=== PATIENT | male | born 1975 | race Hispanic/Latino ===

== ENCOUNTER 2021-02-26 16:49 | Emergency (ER) | payer OTHER ==
[2021-02-26 17:36] LABS: Urine Blood 3+ (Negative); Urine Glucose Negative (Negative); Urine Protein 1+ (Negative); Urine pH 5.5 (5.0-7.0)
[2021-02-26 18:17] LABS: Absolute Lymphocytes (CBC) 0.5 K/uL (0.7-4.9); Basophils % 0.2 % (0-1.3); Hematocrit 48.1 % (39.6-49.0); Lymphocytes % 3.7 % (15.3-44.8); MPV 8.9 fL (7.6-11.3); RBC Red Blood Cell Count 5.58 M/uL (4.33-5.43)
[2021-02-26 18:19] LABS: Urine Bacteria <20 /HPF (NONE SEEN); Urine RBC 20-50 /HPF (NONE SEEN)
[2021-02-26 18:22] LABS: Potassium 4.1 mmol/L (3.5-5.1)
--- NOTE | 2021-02-26 18:42 | RAD REPORT ---
EXAM DESCRIPTION: CT - Stone Protocol - 02/26/2021 6:30 pm CLINICAL HISTORY: Abdominal pain. COMPARISON: None. TECHNIQUE: Computed axial tomography of the abdomen pelvis was obtained without oral or IV contrast. Lack of IV and oral contrast limits evaluation of solid organs, bowel, and vessels. Coronal reformat abhishek images were obtained and reviewed. All CT scans are performed using dose optimization technique as appropriate and may include automated exposure control or mA/KV adjustment according to patient size. FINDINGS: Small right renal calculi. No hydronephrosis. Mild to moderate left hydronephrosis. 6 millimeter calculus proximal to mid left ureter. The liver, spleen, pancreas and adrenals appear grossly normal There is no evidence of diverticulitis. The appendix appears normal Small inguinal hernias contain fat. Small umbilical hernia Small hiatal hernia IMPRESSION: A 6 millimeter calculus proximal to the left ureter with mild to moderate left hydroneph rosis
[2021-02-26] MEDS ORDERED: TAMSULOSIN 0.4 MG SR CAP ONE (19:09)
[2021-02-26] MEDS ORDERED: MAGNESIUM SULFATE 1 gm IVPB 1 GM/100 ML BAG IV ONE (19:09)
[2021-02-26] MEDS ORDERED: KETOROLAC 30 MG/ML INJ ONE (19:09)
[2021-02-26 19:29] LABS: Blood Morphology Comment NOT SEEN (NOT SEEN); Platelet Estimate ADEQ; White Blood Cell Scan OK (OK)
--- NOTE | 2021-02-26 20:11 | EDPHYS ---
Physician Documentation [facility] Name: Gorge Gaming Age: 45 yrs Sex: Male : 1975 Arrival Date: 02/26/2021 Time: 16:52 Bed 10 Private MD: ED Physician Jonathan Medellin HPI: 02/26 17:54 This 45 yrs old Male presents to ER via Ambulatory with complaints of rn Abdominal Pain, Low Back Pain. 17:54 The patient presents with pain that is acute, with no known mechanism of injury. The rn symptoms are located in the low back. The pain radiates to the pelvis. Onset: The symptoms/episode began/occurred 4 hour(s) ago. Modifying factors: The patient symptoms are alleviated by nothing, the patient symptoms are aggravated by any movement. Associated signs and symptoms: Pertinent positives: abdominal pain, Pertinent negatives: chest pain, fever, incontinence, urinary retention. Severity of symptoms: At their worst the symptoms were moderate, in the emergency department the symptoms have improved. The patient has not experienced similar symptoms in the past. The patient has not recently seen a physician. PainPatient reports sudden onset left that radiated to the testicles, no history of kidney stone but father with kidney stones. Denies gross hematuria. No trauma. No fever. No abdominal pain. Reports pain was 8 or 9 out of 10, and upon arrival pain immediately improved to 2 or 3 out of 10. States earlier was pacing around and sweating when the pain was bad.. Historical: - Allergies: 17:07 No Known Allergies; vg1 - Home Meds: 17:07 None [Active]; vg1 - PMHx: 17:07 None; vg1 - PSHx: 17:07 None; vg1 - Immunization history:: Adult Immunizations up to date, Client reports receiving the 2nd dose of the Covid vaccine. - Social history:: Smoking status: Reported history of juuling and/or vaping. - Family history:: not pertinent. - Hospitalizations: : No recent hospitalization is reported. ROS: 17:54 Constitutional: Negative for fever, chills, and weight loss, Eyes: Negative for injury, rn pain, redness, and discharge, Cardiovascular: Negative for chest pain, palpitations, and edema, Respiratory: Negative for shortness of breath, cough, wheezing, and pleuritic chest pain, Abdomen/GI: Positive for nausea Back: Positive for left lower back pain : Positive for mild dysuria MS/Extremity: Negative for injury and deformity, Skin: Negative for injury, rash, and discoloration, Neuro: Negative for headache, weakness, numbness, tingling, and seizure. Exam: 17:54 Constitutional: This is a well developed, well nourished patient who is awake, alert, rn and in no acute distress. Head/Face: Normocephalic, atraumatic. Eyes: Periorbital areas with no swelling, redness, or edema. Cardiovascular: Regular rate and rhythm. No pulse deficits. Respiratory: No increased work of breathing, no retractions or nasal flaring. Abdomen/GI: Soft, non-tender Back: No costovertebral tenderness. Skin: Warm, dry MS/ Extremity: Pulses equal, no cyanosis. Neuro: Awake and alert, GCS 15 Vital Signs: 17:05 BP 151 / 96; Pulse 80; Resp 20; Temp 98.3(O); Pulse Ox 99% ; Weight 117.93 kg; Height 6 vg1 ft. 3 in. (190.50 cm); Pain 7/10; 18:25 BP 148 / 89; Pulse 77; Resp 17; Pulse Ox 99% ; oh 19:35 BP 139 / 88; Pulse 77; Resp 20; Temp 96.4(O); Pulse Ox 99% on R/A; cc4 20:59 BP 116 / 83; Pulse 71; Resp 20; Temp 96.6; Pulse Ox 97% on R/A; cc4 17:05 Body Mass Index 32.50 (117.93 kg, 190.50 cm) vg1 MDM: 17:40 Patient medically screened. rn 18:40 Differential diagnosis: UTI, kidney stone, ureteral stone. Data reviewed: vital signs, rn nurses notes. Response to treatment: the patient's symptoms have markedly improved after treatment. ED course: Patient essentially pain-free now, states feels much better. Awaiting on CT results given most likely diagnosis is kidney stone. Patient currently acting like stone may have passed into the bladder. No sign of UTI.. 18:50 ED course: 6 mm mid left ureteral stone on CT. Patient pain well controlled currently rn but will continue to monitor in ER given his his first kidney stone.. 20:11 ED course: Vital signs stable. Patient reports she has been pain-free for the last cp hour. Will discharge to home for continued monitoring. Patient instructed to return to the ER fever worsening pain, otherwise recommend follow-up with urologist if symptoms continue past the weekend. 02/26 17:32 Order name: Urine Microscopic Only; Complete Time: 18:26 02/26 20:01 Interpretation: Normal except: URBC 20-50. 02/26 17:36 Order name: Urine Dipstick-Ancillary; Complete Time: 17:40 EDIN 02/26 17:41 Order name: CT Stone Protocol; Complete Time: 18:46 02/26 17:41 Order name: CBC with Diff; Complete Time: 20:00 02/26 20:01 Interpretation: Normal except: WBC 14.80; RBC 5.58; HERNANDEZ% 93.7; LYM% 3.7; MN% 2.4; NEUT cp A 13.9; LYMA 0.5. 02/26 17:41 Order name: Basic Metabolic Panel; Complete Time: 18:26 02/26 20:01 Interpretation: Normal except: GLUC 131; BUN 22; GFR 66. 02/26 19:29 Order name: CBC Smear Scan; Complete Time: 20:00 [facility] 02/26 17:32 Order name: Urine Dipstick-Ancillary (obtain specimen); Complete Time: 17:56 02/26 17:41 Order name: IV Start; Complete Time: 17:50 rn Administered Medications: 21:05 Discontinued: Magnesium Sulfate 1 grams IVPB once over 1 hrs cc4 18:51 Drug: Magnesium Sulfate 1 grams Route: IVPB; Infused Over: 1 hrs; Site: left oh antecubital; 20:59 Follow up: Response: No adverse reaction cc4 18:51 Drug: Flomax (tamsulosin) 0.4 mg Route: PO; oh 20:59 Follow up: Response: No adverse reaction cc4 18:51 Drug: Ketorolac 30 mg Route: IVP; Site: left antecubital; oh 20:59 Follow up: Response: No adverse reaction; Marked relief of symptoms; Pain is decreased cc4 Disposition: 02/27 07:09 Co-signature as Attending Physician, Jonathan Medellin MD I agree with the assessment and rn plan of care. I saw and evaluated patient, note complete by me with physical exam noted earlier, patient left to PA just for disposition. . Disposition Summary: 02/26/21 20:10 Discharge Ordered Location: Home cp Problem: new cp Symptoms: have improved cp Condition: Stable cp Diagnosis - Calculus of kidney with calculus of ureter - right cp Followup: rn - With: - When: As needed - Reason: Recheck today's complaints, Re-evaluation by your physician Discharge Instructions: - Discharge Summary Sheet rn - Kidney Stones rn - Renal Colic rn - Dietary Guidelines to Help Prevent Kidney Stones rn Forms: - Medication Reconciliation Form cp - Thank You Letter cp - Antibiotic Education cp - Prescription Opioid Use cp Prescriptions: - tamsulosin 0.4 mg Oral capsule - take 1 capsule by ORAL route once daily As needed Take only when actively rn passing kidney stone. Once kidney stone has passed stop medication due to risk of low blood pressure and lightheadedness.; 15 capsule; Refills: 0, Product Selection Permitted - ondansetron 4 mg Oral tablet,disintegrating - place 1 tablet by TRANSLINGUAL route every 8 hours As needed; 15 tablet; rn Refills: 0, Product Selection Permitted - Ibuprofen 800 mg Oral Tablet - take 1 tablet by ORAL route every 12 hours As needed take with food; 20 tablet; rn Refills: 0, Product Selection Permitted - Tylenol-Codeine #3 300 mg-30 mg Oral - take 1 tablet by ORAL route every 6-8 hours As needed; 15 tablet; Refills: 0, rn Product Selection Permitted Signatures: Dispatcher [employer] Jonathan Frey MD MD rn Page, Corey, PA PA cp Garcia, Victoria, RN RN vg1 Lisette Vogt RN Jeanna Leblanc RN cc4
--- NOTE | 2021-02-26 20:11 | ER ---
Nurse's Notes [facility] Name: Gorge Gaming Age: 45 yrs Sex: Male : 1975 Arrival Date: 02/26/2021 Time: 16:52 Bed 10 Private MD: Diagnosis: Calculus of kidney with calculus of ureter-right Presentation: 02/26 17:05 Chief complaint: Patient states: Today at 1300 Left flank pain began that radiates to vg1 ABD on down left side of groin. Pt states is unable to have a full flow when urinating. Denies burning or pain upon urination. States Nausea; pt skin is diaphoretic. Coronavirus screen: Vaccine status: Patient reports receiving the 2nd dose of the covid vaccine. Ebola Screen: Patient negative for fever greater than or equal to 101.5 degrees Fahrenheit, and additional compatible Ebola Virus Disease symptoms. Initial Sepsis Screen: Does the patient meet any 2 criteria? No. Patient's initial sepsis screen is negative. Does the patient have a suspected source of infection? No. Patient's initial sepsis screen is negative. Risk Assessment: Do you want to hurt yourself or someone else? Patient reports no desire to harm self or others. Onset of symptoms was February 26, 2021. 17:05 Method Of Arrival: Ambulatory vg1 17:05 Acuity: RUIZ 3 vg1 Triage Assessment: 17:07 General: Appears in no apparent distress. uncomfortable, Behavior is calm, cooperative. vg1 Pain: Complains of pain in left upper quadrant and left lower quadrant, Left flank, groin Pain currently is 7 out of 10 on a pain scale. GI: Reports nausea. : Denies burning with urination, pain. Historical: - Allergies: 17:07 No Known Allergies; vg1 - Home Meds: 17:07 None [Active]; vg1 - PMHx: 17:07 None; vg1 - PSHx: 17:07 None; vg1 - Immunization history:: Adult Immunizations up to date, Client reports receiving the 2nd dose of the Covid vaccine. - Social history:: Smoking status: Reported history of juuling and/or vaping. - Family history:: not pertinent. - Hospitalizations: : No recent hospitalization is reported. Screenin:06 Abuse screen: Denies threats or abuse. Nutritional screening: No deficits noted. oh Tuberculosis screening: No symptoms or risk factors identified. Fall Risk None identified. Assessment: 18:06 General: Appears comfortable, Behavior is calm, cooperative, Reports left sided flank oh pain. Pain: Complains of pain in pelvis, left sided flank. :. 18:08 GI: Bowel sounds present X 4 quads. Abdomen is tender to palpation. oh 19:35 Reassessment: Patient appears in no apparent distress at this time. cc4 19:35 Pain: Denies pain. cc4 20:59 Reassessment: Patient appears in no apparent distress at this time. Pain: Denies pain. cc4 Vital Signs: 17:05 BP 151 / 96; Pulse 80; Resp 20; Temp 98.3(O); Pulse Ox 99% ; Weight 117.93 kg; Height 6 vg1 ft. 3 in. (190.50 cm); Pain 7/10; 18:25 BP 148 / 89; Pulse 77; Resp 17; Pulse Ox 99% ; oh 19:35 BP 139 / 88; Pulse 77; Resp 20; Temp 96.4(O); Pulse Ox 99% on R/A; cc4 20:59 BP 116 / 83; Pulse 71; Resp 20; Temp 96.6; Pulse Ox 97% on R/A; cc4 17:05 Body Mass Index 32.50 (117.93 kg, 190.50 cm) vg1 ED Course: 16:52 Patient arrived in ED. rg4 17:07 Triage completed. vg1 17:07 Arm band placed on. vg1 17:40 Jonathan Medellin MD is Attending Physician. rn 17:50 Lisette Vogt RN is Primary Nurse. oh 18:06 CBC with Diff Sent. oh 18:06 Basic Metabolic Panel Sent. oh 18:06 Urine Microscopic Only Sent. oh 18:06 Inserted saline lock: 20 gauge in left antecubital area, using aseptic technique. Blood oh collected. 18:08 Bed in low position. Call light in reach. oh 18:30 CT Stone Protocol In Process Unspecified. EDMS 19:10 Joselito Santacruz PA is PHCP. cp 20:10 Marty Degroot MD is Referral Physician. cp 20:59 No provider procedures requiring assistance completed. cc4 20:59 IV discontinued, intact, bleeding controlled, No redness/swelling at site. Pressure cc4 dressing applied. Administered Medications: 21:05 Discontinued: Magnesium Sulfate 1 grams IVPB once over 1 hrs cc4 18:51 Drug: Magnesium Sulfate 1 grams Route: IVPB; Infused Over: 1 hrs; Site: left oh antecubital; 20:59 Follow up: Response: No adverse reaction cc4 18:51 Drug: Flomax (tamsulosin) 0.4 mg Route: PO; oh 20:59 Follow up: Response: No adverse reaction cc4 18:51 Drug: Ketorolac 30 mg Route: IVP; Site: left antecubital; oh 20:59 Follow up: Response: No adverse reaction; Marked relief of symptoms; Pain is decreased cc4 Outcome: 20:10 Discharge ordered by MD. cp 20:59 Discharged to home ambulatory, with significant other. cc4 20:59 Condition: good 20:59 Condition: improved 20:59 Discharge instructions given to patient, significant other, Instructed on discharge instructions, follow up and referral plans. medication usage, urine strainer, Demonstrated understanding of instructions, follow-up care, medications, straining urine Prescriptions given X 4. 21:06 Patient left the ED. cc4 Signatures: Dispatcher [employer] EDMS Jonathan Medellin MD MD rn Page, Corey, PA PA cp Ale Ponce rg4 Ngozi Ponce RN RN vg1 Jeanna Hdez RN RN cc4 Lisette Vogt RN RN oh Corrections: (The following items were deleted from the chart) 17:11 17:05 Chief complaint: Patient states: Today at 1300 Left flank pain began that vg1 radiates to ABD on down left side of groin. Pt states is unable to have a full flow when urinating. Denies burning or pain upon urination. States Nausea. vg1
[2021-02-26 21:16] VITALS: BP 116/83; TEMP 96.6; O2SAT 97
== END 2021-02-26 21:06 | disposition home or self-care (01) ==
LOC: ER 16:49
DX: N20.2 Calculus of kidney with calculus of ureter (principal)
CPT/HCPCS: 85025; 80048; 36415; 76377; 74176; 96375; 96374; 99284; J3475; 81003; 81015